=== PATIENT | male | born 1965 ===

== ENCOUNTER 2018-03-09 10:00 | Emergency (ER) | payer MEDICARE ==
[2018-03-09 10:18] VITALS: BMI 24.4
--- NOTE | 2018-03-09 10:20 | ED PDOC ---
Arrival/HPI - General Chief Complaint: ENT Problem Time Seen by Provider: 03/09/18 10:20 Historian: Patient - History of Present Illness Narrative History of Present Illness (Text): 03/09/18 11:37 52 year old male presents to the emergency department complaining of redness and swelling to the tip of his nose x 3 days. Pt states there was a pimple in the area last week, and the nose became red, swollen, and tender after he attempted to squeeze it. He has been applying warm compresses to the area without relief. Also currently has URI with associated sinus congestion. Denies fever, chills, headache, vision changes, difficulty breathing, N/V, or any other associated symptoms. Past Medical History - Provider Review Nursing Documentation Reviewed: Yes Family/Social History - Physician Review Nursing Documentation Reviewed: Yes Family/Social History: No Known Family HX Allergies/Home Meds Allergies/Adverse Reactions: Allergies Sulfa (Sulfonamide Antibiotics) Allergy (Verified 03/09/18 10:55) RASH sulfamethoxazole [From Bactrim] Allergy (Verified 03/09/18 10:55) RASH trimethoprim [From Bactrim] Allergy (Verified 03/09/18 10:55) RASH Review of Systems - Physician Review All systems were reviewed & negative as marked: Yes - Review of Systems Constitutional: Normal. absent: Fevers Eyes: Normal. absent: Vision Changes, Eye Pain ENT: Normal, Sinus Congestion. absent: Sore Throat Respiratory: Normal. absent: SOB, Cough Cardiovascular: Normal. absent: Chest Pain, Palpitations Gastrointestinal: Normal. absent: Abdominal Pain, Nausea, Vomiting Genitourinary Male: Normal Musculoskeletal: Normal. absent: Back Pain, Neck Pain Skin: Cellulitis (nose). absent: Rash, Abscess Neurological: Normal. absent: Headache, Dizziness Endocrine: Normal Hemo/Lymphatic: Normal Psychiatric: Normal Physical Exam Vital Signs Reviewed: Yes Temperature: Afebrile Blood Pressure: Normal Pulse: Regular Respiratory Rate: Normal Appearance: Positive for: Well-Appearing, Non-Toxic, Comfortable Pain Distress: None Mental Status: Positive for: Alert and Oriented X 3 - Systems Exam Head: Present: Atraumatic, Normocephalic Pupils: Present: PERRL Extroacular Muscles: Present: EOMI Conjunctiva: Present: Normal Ears: Present: Normal, NORMAL TM, Normal Canal. No: Erythema, TM Bulging, Fluid, TM Perf Mouth: Present: Moist Mucous Membranes Pharnyx: Present: Normal. No: ERYTHEMA, EXUDATE, TONSILS ENLARGED, Peritonsilar Swelling, Uvular Deviation, Muffled/Hoarse Voice, Soft Palate/Uvular Edema Nose (External): Present: Atraumatic, Other (tip of the nose red, swollen, tender ) Nose (Internal): Present: Normal Inspection, No Active Bleeding, Moist, Clear Mucous. No: Engorged, Edematous, Rhinorrhea, Purulent Mucous, Septal Deviation, Septal Hematoma, Epistaxis Neck: Present: Normal Range of Motion. No: Meningeal Signs, MIDLINE TENDERNESS, Paraspinal Tenderness, JVD, Lymphadenopathy Respiratory/Chest: Present: Clear to Auscultation, Good Air Exchange. No: Respiratory Distress, Accessory Muscle Use Cardiovascular: Present: Regular Rate and Rhythm, Normal S1, S2, Peripheal Pulses Present Abdomen: Present: Normal Bowel Sounds. No: Tenderness, Distention, Peritoneal Signs, Rebound, Guarding Back: Present: Normal Inspection. No: CVA Tenderness, Midline Tenderness, Paraspinal Tenderness Upper Extremity: Present: Normal Inspection, Normal ROM, NORMAL PULSES, Neurovascularly Intact, Capillary Refill < 2s. No: Cyanosis, Edema Lower Extremity: Present: Normal Inspection, Normal ROM, Neurovascularly Intact, Capillary Refill < 2 s Neurological: Present: GCS=15, CN II-XII Intact, Speech Normal, Motor Func Grossly Intact, Normal Sensory Function, Gait Normal Skin: Present: Warm, Dry, Normal Color. No: Rashes Lymphatic: No: Cervical Adenopathy Psychiatric: Present: Alert, Oriented x 3, Normal Insight, Normal Concentration, Normal Affect, Normal Mood Medical Decision Making ED Course and Treatment: Initial Plan: * Keflex * Doxycycline Case discussed with Dr. Lizarraga who agrees with plan of care and disposition. Patient allergic to Bactrim, will give Keflex and Doxycycline per Dr. Lizarraga. Diagnostic testing and plan of care discussed with patient. Strict instructions given regarding prescription use, importance of followup, and signs/symptoms to return to ER including fever, chills, vision changes, headache, or any other new/worsening symptoms. Patient verbalizes understanding of instructions and was given the opportunity to ask questions. Patient A&Ox3, ambulating with steady gait, with vital signs stable for discharge. Disposition/Present on Arrival - Present on Arrival Any Indicators Present on Arrival: No History of DVT/PE: No History of Uncontrolled Diabetes: No Urinary Catheter: No History of Decub. Ulcer: No - Disposition Have Diagnosis and Disposition been Completed?: Yes Diagnosis: Cellulitis Disposition: HOME/ ROUTINE Disposition Time: 11:20 Patient Plan: Discharge Patient Problems: Current Active Problems Problem Status Onset Cellulitis Acute Condition: STABLE Discharge Instructions (ExitCare): Cellulitis (ED) Additional Instructions: Take Doxycycline 100mg every 12 hours x 7 days Take Keflex 500mg every 6 hours x 7 days Continue warm compresses Apply antibiotic ointment daily on clean skin Followup with primary doctor within 1-2 days Return to ER for new/worsening symptoms Prescriptions: Cephalexin [Keflex] 500 mg PO QID 7 Days #28 capsule RX: Doxycycline Monohydrate 100 mg PO Q12H #14 capsule RX: Mupirocin 2% Ointment [Bactroban Ointment] 1 appl TD DAILY #1 tube Referrals: José Miguel Palacio DO [Staff Provider] - Follow up with primary Forms: [employer] (German), WORK NOTE
[2018-03-09 10:21] VITALS: BP 122/86; RESP 18; TEMP 98.4; O2SAT 99
[2018-03-09] MEDS ORDERED: Tmp-Smz 800 mg-160 mg DS Tab PO STA (10:46)
[2018-03-09 11:35] VITALS: PULSE 76
== END 2018-03-09 11:35 | disposition home or self-care (01) ==
LOC: ED 10:00 → MERGE 10:00 → ED 11:35
DX: J34.0 Abscess, furuncle and carbuncle of nose (principal)